=== PATIENT | male | born 1980 | race Caucasian/White ===

== ENCOUNTER 2016-09-07 14:42 | Emergency (ER) | payer OTHER ==
[2016-09-07 16:24] VITALS: BP 129/80
--- NOTE | 2016-09-07 16:42 | UC ---
FLU HPI - HPI Summary HPI Summary: had viral gi illness for the past two days now id feeling better with no fever taking po well needs note to return to work tomorrow - History of Current Complaint Chief Complaint: UCGeneralIllness Stated Complaint: FLU SYMPTOMS Time Seen by Provider: 09/07/16 16:33 Hx Obtained From: Patient Onset/Duration: Sudden Onset, Resolved Severity Currently: None Severity Initially: Moderate Associated Signs & Symptoms: Positive: Vomiting, Diarrhea - Allergy/Home Medications Allergies/Adverse Reactions: Allergies Allergy/AdvReac Type Severity Reaction Status Date / Time No Known Allergies Allergy Verified 09/07/16 16:18 Home Medications: Home Medications NK [No Home Medications Reported] 09/07/16 [History Confirmed 09/07/16] PMH/Surg Hx/FS Hx/Imm Hx Previously Healthy: Yes - Surgical History Surgical History: Yes Surgery Procedure, Year, and Place: Septoplasty x 2; [place], 2006, [place]; T& A, 1985, [place], right ear surgery - Family History Known Family History: Positive: None Family History: no cardiovascular issues in family lineage - Social History Occupation: Employed Full-time Lives: With Family Alcohol Use: Weekly Alcohol Amount: weekends Substance Use Type: None Smoking Status (MU): Light Every Day Tobacco Smoker Type: Cigarettes Amount Used/How Often: 1/2 PPD Length of Time of Smoking/Using Tobacco: 16 Years Have You Smoked in the Last Year: Yes - Immunization History Most Recent Influenza Vaccination: none Review of Systems Constitutional: Negative Skin: Negative Eyes: Negative ENT: Negative Respiratory: Negative Cardiovascular: Negative Gastrointestinal: Negative Genitourinary: Negative Motor: Negative Neurovascular: Negative Musculoskeletal: Negative Neurological: Negative Psychological: Negative All Other Systems Reviewed And Are Negative: Yes Physical Exam Triage Information Reviewed: Yes Appearance: Well-Appearing, No Pain Distress, Well-Nourished Vital Signs: Initial Vital Signs Temp 98.0 F 09/07/16 16:19 Pulse 70 09/07/16 16:19 Resp 16 09/07/16 16:19 BP 129/80 09/07/16 16:19 Pulse Ox 97 09/07/16 16:19 Vital Signs Reviewed: Yes Eye Exam: Normal Eyes: Positive: Conjunctiva Clear ENT Exam: Normal ENT: Positive: Normal ENT inspection, Hearing grossly normal, Pharynx normal, TMs normal. Negative: Nasal congestion, Nasal drainage, Tonsillar swelling, Tonsillar exudate, Trismus, Muffled/hoarse voice Dental Exam: Normal Neck exam: Normal Neck: Positive: Supple, Nontender, No Lymphadenopathy Respiratory Exam: Normal Respiratory: Positive: Chest non-tender, Lungs clear, Normal breath sounds, No respiratory distress, No accessory muscle use Cardiovascular Exam: Normal Cardiovascular: Positive: RRR, No Murmur, Pulses Normal, Brisk Capillary Refill Abdominal Exam: Normal Abdomen Description: Positive: Nontender, No Organomegaly, Soft Bowel Sounds: Positive: Present Musculoskeletal Exam: Normal Musculoskeletal: Positive: Strength Intact, ROM Intact Neurological Exam: Normal Neurological: Positive: Alert, Muscle Tone Normal Psychological Exam: Normal Skin Exam: Normal Flu Course/Dx - Course Course Of Treatment: increase fluids, recheck prn - Differential Dx/Diagnosis Differential Diagnosis/HQI/PQRI: Bronchitis, Broncholiolitis, Influenza, RSV, Other - acute nausea and vomting, viral illness Provider Diagnoses: resolved viral illness Discharge - Discharge Plan Condition: Stable Disposition: HOME Patient Education Materials: Viral Syndrome (ED) Forms: *Work Release Referrals: Shyann Vieira MD [Medical Doctor] - Mary Rebolledo MD [Medical Doctor] - If Needed
== END 2016-09-07 16:51 | disposition home or self-care (01) ==
LOC: UCCORT 14:42
DX: Z09 Encounter for follow-up examination after completed treatment for conditions other than malignant neoplasm (principal); Z87.19 Personal history of other diseases of the digestive system; F17.210 Nicotine dependence, cigarettes, uncomplicated
CPT/HCPCS: 99211; G0463

== ENCOUNTER 2017-06-25 10:04 | Emergency (ER) | payer OTHER ==
[2017-06-25 10:46] VITALS: BP 127/86
[2017-06-25] MEDS ORDERED: Ketorolac INJ* 30 MG/ML 1 ML VIAL IM ONE (11:15)
--- NOTE | 2017-06-25 11:21 | UC ---
Dental HPI - HPI Summary HPI Summary: Patient has pain in the upper jaw that started 2 days ago. now has pain into the upper sinus, has had root canals on the front two teeth - History of Current Complaint Chief Complaint: UCDentalProblem Stated Complaint: DENTAL/GUM PAIN Time Seen by Provider: 06/25/17 11:08 Hx Obtained From: Patient Onset/Duration: Sudden Onset, Lasting Days Severity: Moderate Related History: Previous Dental Care on Same Tooth - Allergies/Home Medications Allergies/Adverse Reactions: Allergies Allergy/AdvReac Type Severity Reaction Status Date / Time No Known Allergies Allergy Verified 06/25/17 10:46 Home Medications: Home Medications Ibuprofen TAB* [Motrin TAB* 800 MG] 800 mg PO DAILY PRN 06/25/17 [History Confirmed 06/25/17] PMH/Surg Hx/FS Hx/Imm Hx Previously Healthy: Yes - Surgical History Surgical History: Yes Surgery Procedure, Year, and Place: Septoplasty x 2; [place], 2006, [place]; T& A, 1985, [place], right ear surgery - Family History Known Family History: Positive: None Family History: no cardiovascular issues in family lineage - Social History Alcohol Use: Weekly Alcohol Amount: 10 Substance Use Type: None Smoking Status (MU): Light Every Day Tobacco Smoker Type: Cigarettes Amount Used/How Often: 1/2 PPD Length of Time of Smoking/Using Tobacco: 16 Years Have You Smoked in the Last Year: Yes - Immunization History Most Recent Influenza Vaccination: none Review of Systems Constitutional: Negative Skin: Negative Eyes: Negative ENT: Dental Pain, Sinus Pain/Tenderness Respiratory: Negative Cardiovascular: Negative Gastrointestinal: Negative Genitourinary: Negative Motor: Negative Neurovascular: Negative Musculoskeletal: Negative Neurological: Headache Psychological: Negative Is Patient Immunocompromised?: No All Other Systems Reviewed And Are Negative: Yes Physical Exam Triage Information Reviewed: Yes Appearance: Well-Nourished, Ill-Appearing, Pain Distress Vital Signs: Initial Vital Signs Temp 98.4 F 06/25/17 10:39 Pulse 75 06/25/17 10:39 Resp 20 06/25/17 10:39 BP 127/86 06/25/17 10:39 Vital Signs Reviewed: Yes Eye Exam: Normal ENT: Positive: Pharynx normal, TMs normal Dental: Positive: Gross Decay/Caries @ - in the front two teeth, erythema and a small abcess tarting about the front left tooth Dental Complaint Course/Dx - Course Course Of Treatment: hx obtained, exam performed ,meds reviewed, treated for dental abcess, patient has dentist, recommend follow up this week. - Differential Dx/Diagnosis Differential Diagnosis/Dx: Dental Abscess, Dental Caries, Gingivitis, Peridontic Disease, Peritonsillar Abcess Provider Diagnoses: dental alexandro, dental abcess. sinus pressure, left maxillary Discharge - Discharge Plan Condition: Stable Disposition: HOME Prescriptions: Penicillin VK 500 MG TAB(NF) [Penicillin VK 500 mg Tab] 500 mg PO QID #28 tab Patient Education Materials: Dental Abscess (ED) Additional Instructions: 1. warm compresses to the face, continue with tylenol for pain, after 7 pm today you can start ibuprofen again 2. Take the antibiotic as prescribed. 3. follow up with the dentist this week
== END 2017-06-25 11:26 | disposition home or self-care (01) ==
LOC: UCCORT 10:04
DX: K04.7 Periapical abscess without sinus (principal); K02.9 Dental caries, unspecified; J32.0 Chronic maxillary sinusitis; F17.210 Nicotine dependence, cigarettes, uncomplicated
CPT/HCPCS: 96372; 99212; G0463; J1885